=== PATIENT | male | born 1990 | race Caucasian/White ===

== ENCOUNTER 2016-06-14 14:46 | Emergency (ER) | payer SELFPAY ==
[~2016-06-14] VITALS: Ht 165.1 cm; Wt 68.0 kg
[~2016-06-14 14:46] MED LIST: CLIN150 PO; IBUP800T23 PO; LIDO2SOL SS; Z.0.NO CURRENT MEDS; ZOVI200C24 PO
[2016-06-14 14:47] VITALS: BP 143/96; PULSE 87; RESP 16; TEMP 97.8; O2SAT 97
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
[2016-06-14] MEDS ORDERED: IBUP800T23 PO (16:05)
[2016-06-14] MEDS ORDERED: LIDO1SOL8 SWISH-SWAL (16:05)
[2016-06-14] MEDS ORDERED: CLIN1CAP6 PO (16:05)
== END 2016-06-14 16:56 | disposition home or self-care (01) ==
LOC: NEPB 14:46
DX: K04.7 Periapical abscess without sinus (principal); K08.89 Other specified disorders of teeth and supporting structures; F17.210 Nicotine dependence, cigarettes, uncomplicated
CPT/HCPCS: 99282

== ENCOUNTER 2016-09-16 12:52 | Emergency (ER) | payer SELFPAY ==
[~2016-09-16 12:52] MED LIST changes: -CLIN150 PO; +CLIN1CAP6 PO; +LIDO1SOL8 SWISH-SWAL; -LIDO2SOL SS; -Z.0.NO CURRENT MEDS; -ZOVI200C24 PO
[2016-09-16 12:53] VITALS: BP 132/75; PULSE 85; RESP 15; TEMP 98.2; O2SAT 99
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
== END 2016-09-16 13:58 | disposition home or self-care (01) ==
LOC: NEPK 12:52
DX: Z48.02 Encounter for removal of sutures (principal)
CPT/HCPCS: 99281

== ENCOUNTER 2016-10-26 12:53 | Emergency (ER) | payer SELFPAY ==
[~2016-10-26] VITALS: Ht 167.6 cm; Wt 68.0 kg
[2016-10-26 13:03] VITALS: BP 126/75; PULSE 88; RESP 20; TEMP 98.3; O2SAT 99
[2016-10-26] MEDS ORDERED: CLIN1CAP5 PO (13:22)
[2016-10-26] MEDS ORDERED: IBUP800T23 PO (13:22)
[2016-10-26] MEDS ORDERED: ROBA500T PO (13:22)
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
[2016-10-26] MEDS ORDERED: IBUPROFEN 800 MG TAB PO ONE (13:30)
== END 2016-10-26 13:37 | disposition home or self-care (01) ==
LOC: NEPK 12:53
DX: K08.9 Disorder of teeth and supporting structures, unspecified (principal); K02.9 Dental caries, unspecified; Z88.0 Allergy status to penicillin; F17.210 Nicotine dependence, cigarettes, uncomplicated
CPT/HCPCS: 99283

== ENCOUNTER 2016-11-10 09:56 | Emergency (ER) | payer SELFPAY ==
[~2016-11-10] VITALS: Ht 167.6 cm; Wt 68.0 kg
[~2016-11-10 09:56] MED LIST changes: +CLIN1CAP5 PO; -CLIN1CAP6 PO; -LIDO1SOL8 SWISH-SWAL
[2016-11-10 09:57] VITALS: BP 128/70; PULSE 100; RESP 20; TEMP 98.2; O2SAT 97
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
[2016-11-10] MEDS ORDERED: ZITHTAB PO (10:19)
== END 2016-11-10 10:46 | disposition home or self-care (01) ==
LOC: NEPK 09:56
DX: H66.91 Otitis media, unspecified, right ear (principal); F90.9 Attention-deficit hyperactivity disorder, unspecified type; F17.200 Nicotine dependence, unspecified, uncomplicated; Z79.899 Other long term (current) drug therapy; Z88.0 Allergy status to penicillin
CPT/HCPCS: 99283

== ENCOUNTER 2016-12-20 13:18 | Emergency (ER) | payer SELFPAY ==
[~2016-12-20] VITALS: Ht 167.6 cm; Wt 67.0 kg
[~2016-12-20 13:18] MED LIST changes: +ZITHTAB PO
[2016-12-20 13:20] VITALS: BP 136/82; PULSE 114; RESP 16; TEMP 98.2; O2SAT 99
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
== END 2016-12-20 14:05 | disposition left against medical advice (07) ==
LOC: NEPK 13:18
DX: R21 Rash and other nonspecific skin eruption (principal); F90.9 Attention-deficit hyperactivity disorder, unspecified type; F17.200 Nicotine dependence, unspecified, uncomplicated; Z79.899 Other long term (current) drug therapy; Z88.0 Allergy status to penicillin
CPT/HCPCS: 99281